=== PATIENT | male | born 1945 | race African-American/Black ===

== ENCOUNTER 2020-07-10 10:12 | Inpatient (IN) | payer MEDICARE ==
[~2020-07-10] VITALS: Ht 193 cm; Wt 85.3 kg
[2020-07-10] MEDS ORDERED: DILTIAZEM HCL VIAL 5 ML ONE (10:39)
[2020-07-10 10:44] LABS: BASOPHILS % 0.4 % (0.0-1.0); HEMATOCRIT 38.3 % (38.2-49.6); HEMOGLOBIN 12.4 g/dL (14.0-18.0); LYMPHOCYTES # (AUTO) 1.2 (1.0-3.2); LYMPHOCYTES % 25.4 % (18.0-39.1); MEAN CORPUSCULAR HEMOGLOBIN 26.8 pg (28-32); MEAN CORPUSCULAR HGB CONC 32.4 g/dL (31-35); MEAN CORPUSCULAR VOLUME 82.7 fL (81-99); MONOCYTES # (AUTO) 0.3 (0.2-0.8); MONOCYTES % 6.3 % (4.4-11.3); NEUTROPHILS # (AUTO) 3.1 (2.1-6.9); NEUTROPHILS % 67.7 % (38.7-80.0); PLATELET COUNT 192 x10e3/uL (140-360); RED BLOOD COUNT 4.63 x10e6/uL (4.3-5.7); RED CELL DISTRIBUTION WIDTH 14.6 % (11.7-14.4)
[2020-07-10] MEDS ORDERED: ASPIRIN 81 MG CHEW TAB PO ONE (10:45)
[2020-07-10] MEDS ORDERED: DILTIAZEM HCL 5 MG/ML 5 ML VIAL IV ONE (10:45)
[2020-07-10] MEDS ORDERED: ASPIRIN 81 MG CHEW TAB ONE (10:49)
[2020-07-10 10:53] LABS: INR 1.19; PROTHROMBIN TIME 15.8 seconds (11.9-14.5)
[2020-07-10 10:56] LABS: ALBUMIN 3.3 g/dL (3.5-5.0); ALBUMIN/GLOBULIN RATIO 0.8 (0.8-2.0); ANION GAP 16.9 mmol/L (8-16); CALCIUM 9.6 mg/dL (8.4-10.2); CREATININE, SERUM 1.44 mg/dL (0.72-1.25); POTASSIUM 3.9 mmol/L (3.5-5.1)
[2020-07-10] MEDS ORDERED: ASPIRIN81 MG PO (11:17)
[2020-07-10 11:45] LABS: FREE THYROXINE INDEX 2.3253 (1.4-3.8); THYROID STIMULATING HORMONE 2.09 uIU/mL (0.350-4.940)
[2020-07-10] MEDS ORDERED: DILTIAZEM HCL 5 MG/ML 5 ML VIAL IV STA ×2 (12:32→15:01)
[2020-07-10] MEDS ORDERED: AMIODARONE HCL 150 MG in DEXTROSE 5% 100ML 100 ML IV SCH (19:30)
[2020-07-10] MEDS ORDERED: AMIODARONE 900MG 500 ML IV SCH (19:40)
[2020-07-10] MEDS ORDERED: DEXTROSE 5% 100ML 0 ML IV ONE (19:53)
[2020-07-10] MEDS ORDERED: AMIODARONE HCL 100 ML IV ONE (19:57)
[2020-07-10 20:36] LABS: CREATINE KINASE MB 1.2 ng/mL (0-5.0)
[2020-07-10] MEDS ORDERED: ONDANSETRON HCL INJ 2MG/ML 2ML 2 MG/ML VIAL IV PRN (21:30)
[2020-07-10] MEDS ORDERED: LORAZEPAM INJ 2 MG/ML VIAL IV PRN (21:30)
[2020-07-10] MEDS ORDERED: ACETAMINOPHEN 325 MG TAB PO PRN (21:30)
[2020-07-10] MEDS ORDERED: ENOXAPARIN SOD INJ 40 MG/0.4 ML SYR SC SCH (21:45)
[2020-07-10] MEDS ORDERED: ENOXAPARIN INJ 80 MG/0.8 ML SYR SC STA (22:19)
[2020-07-11] VITALS (8 sets, daily range): BP systolic 130–143; BP diastolic 100–114
[2020-07-11] MEDS: AMIODARONE 900MG 500 ML IV SCH (01:41)
[2020-07-11 07:24] LABS: BASOPHILS % 0.6 % (0.0-1.0); EOSINOPHILS % 0.3 % (0.0-6.0); HEMATOCRIT 41.2 % (38.2-49.6); HEMOGLOBIN 12.8 g/dL (14.0-18.0); LYMPHOCYTES # (AUTO) 1.1 (1.0-3.2); LYMPHOCYTES % 31.1 % (18.0-39.1); MEAN CORPUSCULAR HEMOGLOBIN 26.5 pg (28-32); MEAN CORPUSCULAR HGB CONC 31.1 g/dL (31-35); MEAN CORPUSCULAR VOLUME 85.3 fL (81-99); MONOCYTES # (AUTO) 0.2 (0.2-0.8); MONOCYTES % 6.5 % (4.4-11.3); NEUTROPHILS # (AUTO) 2.2 (2.1-6.9); NEUTROPHILS % 61.2 % (38.7-80.0); PLATELET COUNT 149 x10e3/uL (140-360); RED BLOOD COUNT 4.83 x10e6/uL (4.3-5.7); RED CELL DISTRIBUTION WIDTH 14.6 % (11.7-14.4)
[2020-07-11 07:46] LABS: ANION GAP 19.8 mmol/L (8-16); BLOOD UREA NITROGEN 37 mg/dL (7-26); BUN/CREATININE RATIO 28 (6-25); CALCIUM 9.6 mg/dL (8.4-10.2); CARBON DIOXIDE 22 mmol/L (22-29); CHLORIDE 100 mmol/L (98-107); CREATININE, SERUM 1.32 mg/dL (0.72-1.25); EST GLOMERULAR FILTRATION RATE > 60 ML/MIN (60-); GLUCOSE 105 mg/dL (74-118); POTASSIUM 3.8 mmol/L (3.5-5.1); SODIUM 138 mmol/L (136-145)
[2020-07-11 08:00] LABS: CHOL/HDL RATIO 2.9 (3.9-4.7)
[2020-07-11 08:29] LABS: CREATINE KINASE MB 1.6 ng/mL (0-5.0)
[2020-07-11] MEDS: ENOXAPARIN INJ 80 MG/0.8 ML SYR SC SCH ×2 (09:00→17:50)
[2020-07-11] MEDS: CARVEDILOL 3.125 MG TAB PO SCH ×2 (09:31→17:00)
[2020-07-11] MEDS: FUROSEMIDE INJ 10 MG/ML 2 ML VIAL IV SCH (09:31)
[2020-07-12] VITALS (10 sets, daily range): BP systolic 111–135; BP diastolic 86–111
[2020-07-12] MEDS: AMIODARONE 900MG 500 ML IV SCH (01:41)
[2020-07-12 06:36] LABS: BASOPHILS % 0.3 % (0.0-1.0); HEMATOCRIT 41.9 % (38.2-49.6); HEMOGLOBIN 13.7 g/dL (14.0-18.0); LYMPHOCYTES # (AUTO) 0.9 (1.0-3.2); LYMPHOCYTES % 27.2 % (18.0-39.1); MEAN CORPUSCULAR HEMOGLOBIN 26.4 pg (28-32); MEAN CORPUSCULAR HGB CONC 32.7 g/dL (31-35); MEAN CORPUSCULAR VOLUME 80.7 fL (81-99); MONOCYTES # (AUTO) 0.2 (0.2-0.8); MONOCYTES % 6.3 % (4.4-11.3); NEUTROPHILS # (AUTO) 2.2 (2.1-6.9); NEUTROPHILS % 65.6 % (38.7-80.0); PLATELET COUNT 142 x10e3/uL (140-360); RED BLOOD COUNT 5.19 x10e6/uL (4.3-5.7); RED CELL DISTRIBUTION WIDTH 14.5 % (11.7-14.4)
[2020-07-12 07:02] LABS: ANION GAP 20.1 mmol/L (8-16); CALCIUM 8.9 mg/dL (8.4-10.2); CREATININE, SERUM 1.49 mg/dL (0.72-1.25); MAGNESIUM 2.2 MG/DL (1.3-2.1); POTASSIUM 4.1 mmol/L (3.5-5.1)
[2020-07-12] MEDS: ENOXAPARIN INJ 80 MG/0.8 ML SYR SC SCH ×2 (08:15→21:00)
[2020-07-12] MEDS: CARVEDILOL 3.125 MG TAB PO SCH (08:15)
[2020-07-12] MEDS: FUROSEMIDE INJ 10 MG/ML 2 ML VIAL IV SCH (08:15)
[2020-07-12] MEDS ORDERED: CARVEDILOL 3.125 MG TAB PO SCH (17:00)
[2020-07-12] MEDS ORDERED: LORAZEPAM INJ 2 MG/ML VIAL IV PRN (18:30)
[2020-07-12] MEDS: LORAZEPAM INJ 2 MG/ML VIAL IV SCH (23:31)
[2020-07-13] VITALS (8 sets, daily range): BP systolic 105–132; BP diastolic 74–103
[2020-07-13] MEDS: AMIODARONE 900MG 500 ML IV SCH (01:41)
[2020-07-13] MEDS: LORAZEPAM INJ 2 MG/ML VIAL IV SCH ×3 (06:00→17:00)
[2020-07-13] MEDS: METOPROLOL TARTRATE INJ 1 MG/ML VIAL IV SCH ×4 (06:30→17:01)
[2020-07-13 07:22] LABS: BASOPHILS % 0.9 % (0.0-1.0); EOSINOPHILS % 0.6 % (0.0-6.0); HEMATOCRIT 40.9 % (38.2-49.6); HEMOGLOBIN 13.3 g/dL (14.0-18.0); LYMPHOCYTES # (AUTO) 1.1 (1.0-3.2); LYMPHOCYTES % 33.9 % (18.0-39.1); MEAN CORPUSCULAR HEMOGLOBIN 26.5 pg (28-32); MEAN CORPUSCULAR HGB CONC 32.5 g/dL (31-35); MEAN CORPUSCULAR VOLUME 81.6 fL (81-99); MONOCYTES # (AUTO) 0.2 (0.2-0.8); MONOCYTES % 7.2 % (4.4-11.3); NEUTROPHILS # (AUTO) 1.9 (2.1-6.9); NEUTROPHILS % 57.1 % (38.7-80.0); PLATELET COUNT 142 x10e3/uL (140-360); RED BLOOD COUNT 5.01 x10e6/uL (4.3-5.7); RED CELL DISTRIBUTION WIDTH 14.7 % (11.7-14.4)
[2020-07-13 07:38] LABS: ANION GAP 16.7 mmol/L (8-16); CALCIUM 8.6 mg/dL (8.4-10.2); CREATININE, SERUM 1.54 mg/dL (0.72-1.25); POTASSIUM 3.7 mmol/L (3.5-5.1)
[2020-07-13] MEDS: FUROSEMIDE INJ 10 MG/ML 2 ML VIAL IV SCH (08:18)
[2020-07-13] MEDS: ENOXAPARIN INJ 80 MG/0.8 ML SYR SC SCH ×2 (08:18→21:00)
[2020-07-14] VITALS (15 sets, daily range): BP systolic 99–145; BP diastolic 73–114
[2020-07-14] MEDS: AMIODARONE 900MG 500 ML IV SCH (01:41)
[2020-07-14 05:09] LABS: BASOPHILS % 0.7 % (0.0-1.0); EOSINOPHILS % 0.7 % (0.0-6.0); HEMATOCRIT 39.8 % (38.2-49.6); LYMPHOCYTES # (AUTO) 0.8 (1.0-3.2); MEAN CORPUSCULAR HEMOGLOBIN 26.9 pg (28-32); MEAN CORPUSCULAR HGB CONC 32.7 g/dL (31-35); MEAN CORPUSCULAR VOLUME 82.4 fL (81-99); MONOCYTES # (AUTO) 0.2 (0.2-0.8); MONOCYTES % 7.3 % (4.4-11.3); NEUTROPHILS # (AUTO) 1.9 (2.1-6.9); PLATELET COUNT 147 x10e3/uL (140-360); RED BLOOD COUNT 4.83 x10e6/uL (4.3-5.7); RED CELL DISTRIBUTION WIDTH 14.8 % (11.7-14.4)
[2020-07-14 05:41] LABS: ALBUMIN 2.6 g/dL (3.5-5.0); ANION GAP 17.4 mmol/L (8-16); BILIRUBIN,DIRECT 1.6 mg/dL (0.0-0.5); CALCIUM 8.7 mg/dL (8.4-10.2); CREATININE, SERUM 1.41 mg/dL (0.72-1.25); MAGNESIUM 2.2 MG/DL (1.3-2.1); POTASSIUM 3.4 mmol/L (3.5-5.1)
[2020-07-14] MEDS: LORAZEPAM INJ 2 MG/ML VIAL IV SCH ×3 (06:00→12:00)
[2020-07-14] MEDS: METOPROLOL TARTRATE INJ 1 MG/ML VIAL IV SCH ×3 (06:39→17:48)
[2020-07-14] MEDS ORDERED: METOPROLOL TARTRATE INJ 1 MG/ML VIAL IV PRN (09:15)
[2020-07-14] MEDS: ENOXAPARIN INJ 80 MG/0.8 ML SYR SC SCH ×2 (09:20→21:25)
[2020-07-14] MEDS: FUROSEMIDE INJ 10 MG/ML 2 ML VIAL IV SCH (09:20)
[2020-07-14] MEDS ORDERED: LORAZEPAM INJ 2 MG/ML VIAL IV PRN (13:00)
[2020-07-14] MEDS: DEXTROSE 5%/0.9% SOD CHL 1,000 ML IV SCH (13:06)
[2020-07-14] MEDS ORDERED: POTASSIUM CHLORIDE 20MEQ/100ML 200 ML IV ONE (13:15)
[2020-07-14] MEDS ORDERED: METOPROLOL TARTRATE 25 MG TAB PO SCH (14:00)
[2020-07-14] MEDS: AMIODARONE HCL 200 MG TAB PO SCH (17:00)
[2020-07-15] VITALS (22 sets, daily range): BP systolic 63–142; BP diastolic 40–102
[2020-07-15] MEDS: METOPROLOL TARTRATE INJ 1 MG/ML VIAL IV SCH ×4 (00:13→18:00)
[2020-07-15 04:49] LABS: BASOPHILS % 0.3 % (0.0-1.0); HEMATOCRIT 43.9 % (38.2-49.6); HEMOGLOBIN 13.6 g/dL (14.0-18.0); LYMPHOCYTES # (AUTO) 0.5 (1.0-3.2); LYMPHOCYTES % 7.9 % (18.0-39.1); MEAN CORPUSCULAR HEMOGLOBIN 26.2 pg (28-32); MEAN CORPUSCULAR VOLUME 84.6 fL (81-99); MONOCYTES # (AUTO) 0.3 (0.2-0.8); MONOCYTES % 4.8 % (4.4-11.3); NEUTROPHILS # (AUTO) 5.5 (2.1-6.9); NEUTROPHILS % 86.4 % (38.7-80.0); PLATELET COUNT 128 x10e3/uL (140-360); RED BLOOD COUNT 5.19 x10e6/uL (4.3-5.7); RED CELL DISTRIBUTION WIDTH 15.4 % (11.7-14.4)
[2020-07-15 05:12] LABS: ALBUMIN 2.8 g/dL (3.5-5.0); ALBUMIN/GLOBULIN RATIO 0.7 (0.8-2.0); ANION GAP 14.6 mmol/L (8-16); CALCIUM 9.1 mg/dL (8.4-10.2); CREATININE, SERUM 1.48 mg/dL (0.72-1.25); POTASSIUM 3.6 mmol/L (3.5-5.1)
[2020-07-15] MEDS: DEXTROSE 5%/0.9% SOD CHL 1,000 ML IV SCH (06:31)
[2020-07-15] MEDS: AMIODARONE HCL 200 MG TAB PO SCH (08:29)
[2020-07-15] MEDS: ENOXAPARIN INJ 80 MG/0.8 ML SYR SC SCH (08:30)
[2020-07-15] MEDS ORDERED: FUROSEMIDE INJ 10 MG/ML 4 ML VIAL IV SCH (09:00)
[2020-07-15] MEDS ORDERED: LORAZEPAM INJ 2 MG/ML VIAL IV STA (10:21)
[2020-07-15] MEDS ORDERED: LORAZEPAM INJ 2 MG/ML VIAL IV PRN (13:00)
[2020-07-15 13:46] LABS: HEMATOCRIT 41.2 % (38.2-49.6); HEMOGLOBIN 12.7 g/dL (14.0-18.0)
[2020-07-15] MEDS ORDERED: AMIODARONE HCL 150 MG/100 ML BAG IV ONE (14:15)
[2020-07-15] MEDS ORDERED: AMIODARONE HCL 100 ML IV ONE (14:15)
[2020-07-15] MEDS ORDERED: NOREPINEPHRINE 8 MG/D5W 250 ML 250 ML ONE (14:16)
[2020-07-15] MEDS ORDERED: AMIODARONE 900MG 500 ML IV SCH ×2 (14:30→20:45)
[2020-07-15] MEDS: SODIUM CHLORIDE 0.9% 1000ML 1,000 ML IV SCH ×2 (16:00→19:57)
[2020-07-15] MEDS ORDERED: ALBUMIN 25% 25GM 100ML 200 ML ONE (16:12)
[2020-07-15] MEDS ORDERED: VASOPRESSIN 60 UNIT in DEXTROSE 5% 50ML 57 ML IV PRN (16:15)
[2020-07-15] MEDS ORDERED: SODIUM CHLORIDE 0.9% 1000ML 500 ML IV ONE (16:15)
[2020-07-15] MEDS ORDERED: ALBUMIN 25% 25GM 100ML 0.25 GM/ML BTL IV NR ×2 (16:30)
[2020-07-15] MEDS ORDERED: MEROPENEM 500MG 500 MG in SODIUM CHLORIDE 0.9% 50ML 50 ML IV ONE (16:30)
[2020-07-15] MEDS ORDERED: VANCOMYCIN 1GM/NS 250 ML 250 ML IV ONE (16:30)
[2020-07-15 16:43] LABS: HEMATOCRIT 37.4 % (38.2-49.6); HEMOGLOBIN 11.5 g/dL (14.0-18.0); LYMPHOCYTES # (AUTO) 0.1 (1.0-3.2); LYMPHOCYTES % 5.6 % (18.0-39.1); MEAN CORPUSCULAR HEMOGLOBIN 26.4 pg (28-32); MEAN CORPUSCULAR HGB CONC 30.7 g/dL (31-35); MONOCYTES % 0.9 % (4.4-11.3); NEUTROPHILS % 93.5 % (38.7-80.0); RED BLOOD COUNT 4.35 x10e6/uL (4.3-5.7); RED CELL DISTRIBUTION WIDTH 15.7 % (11.7-14.4)
[2020-07-15 16:49] LABS: PLATELET COUNT 91 x10e3/uL (140-360)
[2020-07-15 17:00] LABS: ANION GAP 22.2 mmol/L (8-16); CALCIUM 8.1 mg/dL (8.4-10.2); CREATININE, SERUM 1.91 mg/dL (0.72-1.25); POTASSIUM 3.2 mmol/L (3.5-5.1)
[2020-07-15] MEDS ORDERED: SODIUM CHLORIDE 0.9% 1000ML 1,000 ML IV SCH (18:00)
[2020-07-15 18:41] LABS: ABG PH 7.37 (7.35-7.45)
[2020-07-15 18:42] LABS: ABG HCO3 22 mmol/L (22-26); ABG PCO2 38 mmHg (35-45); ABG PO2 50 mmHg (80-105); ABG TCO2 23
[2020-07-15] MEDS ORDERED: SODIUM CHLORIDE 0.9% 500ML 500 ML IV ONE (19:00)
[2020-07-15 19:38] LABS: BAND NEUTROPHILS % (MANUAL) 24 %; LYMPHOCYTES % (MANUAL) 9 % (19-48); MONOCYTES % (MANUAL) 2 % (3.4-9.0); NEUTROPHILS % (MANUAL) 63 % (40-74)
[2020-07-15 19:39] LABS: PLATELET ESTIMATE SLIGHTLY DECREASED; PLATELET MORPHOLOGY COMMENT FEW GIANT; RBC MORPHOLOGY COMMENT NORMAL; TOXIC GRANULATION SLIGHT
[2020-07-15] MEDS ORDERED: NOREPINEPHRINE INJ 4MG/4ML 8 MG in DEXTROSE 5% 250ML 250 ML IV PRN (20:00)
[2020-07-16] MEDS: METOPROLOL TARTRATE INJ 1 MG/ML VIAL IV SCH
[2020-07-16 00:02] VITALS: BP 120/88
[2020-07-16 01:04] VITALS: BP 75/46
[2020-07-16 02:06] VITALS: BP 107/78
[2020-07-16] MEDS ORDERED: VASOPRESSIN INJ 20 UNIT/ML VIAL ONE (02:23)
[2020-07-16] MEDS ORDERED: DEXTROSE 5% 50ML 100 ML IV ONE (02:25)
[2020-07-16 03:02] VITALS: BP 89/71
[2020-07-16 04:04] VITALS: BP 62/48
[2020-07-16] MEDS ORDERED: MEROPENEM 500MG/ NS 50ML 50 ML IV SCH (04:30)
== END 2020-07-16 12:01 | disposition expired | DRG 308 ==
LOC: ER 11:11 → UNDOADMIN 12:47 → ERHOLD 12:47 → ICU 07-11 18:40
PROVIDERS: ADMIT Internal Medicine; ATTEND Internal Medicine
PROC: 02HV33Z Insertion of Infusion Device into Superior Vena Cava, Percutaneous Approach (ICD-10-PCS; principal; 2020-07-15)
DX: I48.0 Paroxysmal atrial fibrillation (principal); J81.0 Acute pulmonary edema; G93.41 Metabolic encephalopathy; I50.23 Acute on chronic systolic (congestive) heart failure; I46.2 Cardiac arrest due to underlying cardiac condition; G92 Toxic encephalopathy; D68.9 Coagulation defect, unspecified; I13.0 Hypertensive heart and chronic kidney disease with heart failure and stage 1 through stage 4 chronic kidney disease, or unspecified chronic kidney disease; S37.39XA Other injury of urethra, initial encounter; F10.231 Alcohol dependence with withdrawal delirium; E87.2 Acidosis; Z79.01 Long term (current) use of anticoagulants; Q54.9 Hypospadias, unspecified; D69.59 Other secondary thrombocytopenia; Z20.822 Contact with and (suspected) exposure to COVID-19; N18.30 Chronic kidney disease, stage 3 unspecified; I95.9 Hypotension, unspecified; F17.210 Nicotine dependence, cigarettes, uncomplicated; R63.4 Abnormal weight loss; Z68.22 Body mass index [BMI] 22.0-22.9, adult; I34.0 Nonrheumatic mitral (valve) insufficiency; D64.9 Anemia, unspecified; R31.0 Gross hematuria
CPT/HCPCS: 36415; 36600; 70450; 71045; 76770; 80048; 80053; 80061; 80076; 82550; 82553; 82805; 82948; 83735; 83880; 84436; 84443; 84479; 84484; 85014; 85018; 85025; 85610; 87040; 93005; 93306; 99251; 99285; J1650; J1940; J2060; J2185; J3370; J3480; J7030; J7040; J7042; P9047; U0002